=== PATIENT | female | born 1980 | race Caucasian/White ===

== ENCOUNTER 2023-03-25 15:08 | Outpatient (RCR) | payer OTHER, SELFPAY | END 2023-03-25 23:59 | disposition home or self-care (01) | LOC: RPT 15:08 | PROVIDERS: ATTENDING PHYSICIAN Nurse Practitioner; PRIMARYCARE PHYSICIAN Family Medicine | DX: N32.81 Overactive bladder (principal); M62.89 Other specified disorders of muscle | CPT/HCPCS: 97110; 97530 ==